=== PATIENT | female | born 1970 | race Caucasian/White ===

== ENCOUNTER → 2016-09-05 | Outpatient (CLI) | payer BC, OTHER ==
[~2016-09-05] VITALS: Ht 157.5 cm; Wt 72.6 kg
[~2016-09-05] MED LIST: LIDOCAINE 2% INJ 100 MG/5 ML SDV (FOR ANES.) As Ordered ONE; LOSA100T37 PO; MIDAZOLAM INJ 2 MG/2 ML VIAL (J2250) As Ordered ONE; NS 1,000 ML IV SCH; OMEP20CA3 PO; PROPOFOL 200 MG/20 ML VIAL As Ordered ONE; VARE1TA PO; VERA240C3 PO
--- NOTE | 2016-09-05 09:44 | ROOR ---
Patient Name: Cynthia Branch Procedure Date: 09/05/2016 9:19 AM Date of : 1970 Age: 46 Room: [facility] Gender: Female Note Status: Finalized Procedure: Colonoscopy to Cecum + Cold Snare Polypectomy + Biopsies Indications: Rectal bleeding, Change in bowel habits Providers: Brett Early MD Referring MD: LORRAINE CHANCE NP Requesting Provider: Medicines: Monitored Anesthesia Care Complications: No immediate complications. Procedure: Pre-Anesthesia Assessment: - The heart rate, respiratory rate, oxygen saturations, blood pressure, adequacy of pulmonary ventilation, and response to care were monitored throughout the procedure. The Colonoscope was introduced through the anus and advanced to the cecum, identified by appendiceal orifice and ileocecal valve. The colonoscopy was performed without difficulty. The patient tolerated the procedure well. The quality of the bowel preparation was good. Findings: The perianal and digital rectal examinations were normal. Non-bleeding internal hemorrhoids were found during retroflexion. The hemorrhoids were small and Grade I (internal hemorrhoids that do not prolapse). A small polyp was found at 30 cm proximal to the anus. The polyp was sessile. The polyp was removed with a cold snare. Resection and retrieval were complete. Biopsies for histology were taken with a cold forceps from the ascending colon, transverse colon and descending colon for evaluation of microscopic colitis. The exam was otherwise without abnormality. Impression: - Non-bleeding internal hemorrhoids. - One small polyp at 30 cm proximal to the anus, removed with a cold snare. Resected and retrieved. - The examination was otherwise normal. - Biopsies were taken with a cold forceps from the ascending colon, transverse colon and descending colon for evaluation of microscopic colitis. - The exam was otherwise normal to the cecum. Recommendation: - Patient has a contact number available for emergencies. The signs and symptoms of potential delayed complications were discussed with the patient. Return to normal activities tomorrow. Written discharge instructions were provided to the patient. - High fiber diet. - Discharge patient to home. - Continue present medications. - Await pathology results. - Repeat colonoscopy in 3 - 5 years for surveillance based on pathology results. - Return to referring physician. - The findings and recommendations were discussed with the patient's family. - Check Portal Online for Path Results.([email or web address]) Brett Early MD Brett Early MD 09/05/2016 9:44:42 AM This report has been signed electronically. Number of Addenda: 0 Note Initiated On: 09/05/2016 9:19 AM Estimated Blood Loss: Estimated blood loss: none.
[2016-09-05 10:00] VITALS: BP 171/102
== END ==
LOC: M OPP 08:47
PROVIDERS: ATTEND Internal Medicine Gastroenterology
DX: K64.0 First degree hemorrhoids (principal); D12.6 Benign neoplasm of colon, unspecified; K62.5 Hemorrhage of anus and rectum; R19.4 Change in bowel habit; I10 Essential (primary) hypertension; K21.9 Gastro-esophageal reflux disease without esophagitis; F17.200 Nicotine dependence, unspecified, uncomplicated; E78.5 Hyperlipidemia, unspecified; Z79.899 Other long term (current) drug therapy
CPT/HCPCS: 45380; 45385; 88305; 99156; J2250

== ENCOUNTER → 2017-05-02 | Outpatient (REF) | payer OTHER ==
[~2017-05-02] MED LIST changes: -LIDOCAINE 2% INJ 100 MG/5 ML SDV (FOR ANES.) As Ordered ONE; -LOSA100T37 PO; +LOSA100T5 PO; -MIDAZOLAM INJ 2 MG/2 ML VIAL (J2250) As Ordered ONE; -NS 1,000 ML IV SCH; -PROPOFOL 200 MG/20 ML VIAL As Ordered ONE
[2017-05-02 20:11] LABS: MEAN CORPUSCULAR HEMOGLOBIN 26.9 pg (27.0-33.0); MEAN CORPUSCULAR HGB CONC 32.1 g/dl (32.0-36.5); MEAN CORPUSCULAR VOLUME 83.8 fl (80.0-96.0); PLATELET COUNT, AUTOMATED 274 10^3/uL (150-450); RED CELL DISTRIBUTION WIDTH 14.1 % (11.5-14.5); WHITE BLOOD COUNT 9.2 10^3/uL (4.0-10.0)
[2017-05-02 20:13] LABS: ALBUMIN 3.5 GM/DL (3.2-5.2); ALBUMIN/GLOBULIN RATIO 1.06 (1.00-1.93); ALKALINE PHOSPHATASE 68 U/L (45-117); ALT/SGPT 24 U/L (12-78); ANION GAP 8 MEQ/L (8-16); AST/SGOT 17 U/L (7-37); BILIRUBIN,TOTAL 0.4 MG/DL (0.2-1.0); BLOOD UREA NITROGEN 13 MG/DL (7-18); CARBON DIOXIDE LEVEL 28 MEQ/L (21-32); CHLORIDE LEVEL 103 MEQ/L (98-107); CHOLESTEROL LEVEL 215 MG/DL (<200); CREATININE FOR GFR 0.82 MG/DL (0.55-1.02); GLOMERULAR FILTRATION RATE > 60.0 (>58); GLUCOSE, FASTING 103 MG/DL (70-105); POTASSIUM SERUM 4.1 MEQ/L (3.5-5.1); SODIUM LEVEL 139 MEQ/L (136-145); TOTAL PROTEIN 6.8 GM/DL (6.4-8.2); TRIGLYCERIDES LEVEL 299 MG/DL (<150)
== END ==
LOC: M SFHCCLAY 11:04
PROVIDERS: ATTEND Family Medicine
DX: I10 Essential (primary) hypertension (principal); F17.200 Nicotine dependence, unspecified, uncomplicated; E78.2 Mixed hyperlipidemia

== ENCOUNTER → 2017-10-31 | Outpatient (REF) | payer OTHER ==
[2017-10-31 11:47] LABS: ALBUMIN 3.3 GM/DL (3.2-5.2); ALBUMIN/GLOBULIN RATIO 1.03 (1.00-1.93); ALKALINE PHOSPHATASE 69 U/L (45-117); ALT/SGPT 27 U/L (12-78); ANION GAP 7 MEQ/L (8-16); AST/SGOT 12 U/L (7-37); BILIRUBIN,TOTAL 0.4 MG/DL (0.2-1.0); BLOOD UREA NITROGEN 14 MG/DL (7-18); CALCIUM LEVEL 8.6 MG/DL (8.5-10.1); CARBON DIOXIDE LEVEL 27 MEQ/L (21-32); CHLORIDE LEVEL 107 MEQ/L (98-107); CHOLESTEROL LEVEL 143 MG/DL (<200); CHOLESTEROL RISK RATIO 3.487 (<5); CREATININE FOR GFR 0.78 MG/DL (0.55-1.30); GLOMERULAR FILTRATION RATE > 60.0 (>58); GLUCOSE, FASTING 101 MG/DL (70-100); HDL CHOLESTEROL 41 MG/DL (>40); NON-HDL-C 102 MG/DL; POTASSIUM SERUM 4.1 MEQ/L (3.5-5.1); SODIUM LEVEL 141 MEQ/L (136-145); TOTAL PROTEIN 6.5 GM/DL (6.4-8.2); TRIGLYCERIDES LEVEL 275 MG/DL (<150)
== END ==
LOC: M SFHCCLAY 08:09
DX: E78.2 Mixed hyperlipidemia (principal)
CPT/HCPCS: 80053

== ENCOUNTER → 2018-07-09 | Outpatient (REF) | payer OTHER | LOC: M LAB REF 18:09 | PROVIDERS: ATTEND Specialist | DX: K13.79 Other lesions of oral mucosa (principal) ==

== ENCOUNTER → 2019-03-06 | Outpatient (CLI) | payer BC, OTHER ==
[~2019-03-06] MED LIST changes: -OMEP20CA3 PO; +OMEP20CA4 PO
[2019-03-06 16:48] LABS: FREE THYROXINE INDEX 3.7 % (1.3-4.8); THYROID STIMULATING HORMONE 3.04 uIU/ML (0.358-3.740); THYROXINE (T4) 10.5 UG/DL (4.5-12.0)
== END ==
LOC: M LAB 15:11
PROVIDERS: ATTEND Optometrist
DX: H05.249 Constant exophthalmos, unspecified eye (principal)

== ENCOUNTER → 2019-08-31 | Outpatient (REF) | payer OTHER ==
[~2019-08-31] MED LIST changes: +OMEP1CAP73 PO; -OMEP20CA4 PO
[2019-08-31 16:15] LABS: BASO % 0.3 % (0.0-1.0); EOS # 0.1 10^3/uL (0.0-0.5); EOS % 1.1 % (0.0-3.0); HEMATOCRIT 41.4 % (36.0-47.0); HEMOGLOBIN 13.5 g/dl (12.0-15.5); LYMPH # 2.6 10^3/uL (1.5-5.0); MEAN CORPUSCULAR HEMOGLOBIN 26.8 pg (27.0-33.0); MEAN CORPUSCULAR HGB CONC 32.6 g/dl (32.0-36.5); MEAN CORPUSCULAR VOLUME 82.1 fl (80.0-96.0); MONO # 0.6 10^3/uL (0.0-0.8); MONO % 5.7 % (0.0-5.0); NEUTROPHILS # 6.9 10^3/uL (1.5-8.5); NEUTROPHILS % 67.6 % (36.0-66.0); PLATELET COUNT, AUTOMATED 308 10^3/uL (150-450); RED BLOOD COUNT 5.04 10^6/uL (4.00-5.40); WHITE BLOOD COUNT 10.2 10^3/uL (4.0-10.0)
[2019-08-31 16:31] LABS: ALBUMIN 3.9 GM/DL (3.2-5.2); ALT/SGPT 28 U/L (12-78); BILIRUBIN,TOTAL 0.8 MG/DL (0.2-1.0); BLOOD UREA NITROGEN 18 MG/DL (7-18); CALCIUM LEVEL 8.8 MG/DL (8.5-10.1); CARBON DIOXIDE LEVEL 29 MEQ/L (21-32); CHLORIDE LEVEL 101 MEQ/L (98-107); CHOLESTEROL LEVEL 159 MG/DL (<200); CHOLESTEROL RISK RATIO 3.456 (<5); CREATININE FOR GFR 0.87 MG/DL (0.55-1.30); GLOMERULAR FILTRATION RATE > 60.0 (>51); GLUCOSE, FASTING 102 MG/DL (70-100); HDL CHOLESTEROL 46 MG/DL (>40); LDL CHOLESTEROL 53 MG/DL (<100); NON-HDL-C 113 MG/DL; POTASSIUM SERUM 4.3 MEQ/L (3.5-5.1); SODIUM LEVEL 135 MEQ/L (136-145); TOTAL 25(OH) VITAMIN D 27.6 NG/ML (30.0-100.0); TOTAL PROTEIN 7.3 GM/DL (6.4-8.2); TRIGLYCERIDES LEVEL 299 MG/DL (<150)
[2019-08-31 16:44] LABS: HEMOGLOBIN A1c 6.3 %
== END ==
LOC: M SFHCCLAY 11:24
PROVIDERS: ATTEND Physician Assistant
DX: E66.01 Morbid (severe) obesity due to excess calories (principal); I10 Essential (primary) hypertension

== ENCOUNTER → 2020-06-28 | Outpatient (REF) | payer OTHER ==
[2020-06-28 16:24] LABS: HEMATOCRIT 38.9 % (36.0-47.0); HEMOGLOBIN 12.1 g/dl (12.0-15.5); MEAN CORPUSCULAR HEMOGLOBIN 25.7 pg (27.0-33.0); MEAN CORPUSCULAR HGB CONC 31.1 g/dl (32.0-36.5); MEAN CORPUSCULAR VOLUME 82.6 fl (80.0-96.0); PLATELET COUNT, AUTOMATED 300 10^3/uL (150-450); RED BLOOD COUNT 4.71 10^6/uL (4.00-5.40); WHITE BLOOD COUNT 12.2 10^3/uL (4.0-10.0)
[2020-06-28 16:49] LABS: ALBUMIN 3.4 GM/DL (3.2-5.2); ALT/SGPT 20 U/L (12-78); BILIRUBIN,TOTAL 0.4 MG/DL (0.2-1.0); BLOOD UREA NITROGEN 16 MG/DL (7-18); CALCIUM LEVEL 9.2 MG/DL (8.5-10.1); CARBON DIOXIDE LEVEL 31 MEQ/L (21-32); CHLORIDE LEVEL 100 MEQ/L (98-107); CHOLESTEROL LEVEL 161 MG/DL (<200); CHOLESTEROL RISK RATIO 2.824 (<5); CREATININE FOR GFR 0.88 MG/DL (0.55-1.30); GLOMERULAR FILTRATION RATE > 60.0 (>51); GLUCOSE, FASTING 93 MG/DL (70-100); HDL CHOLESTEROL 57 MG/DL (>40); LDL CHOLESTEROL 64 MG/DL (<100); NON-HDL-C 104 MG/DL; POTASSIUM SERUM 3.8 MEQ/L (3.5-5.1); SODIUM LEVEL 138 MEQ/L (136-145); TOTAL PROTEIN 6.8 GM/DL (6.4-8.2); TRIGLYCERIDES LEVEL 202 MG/DL (<150)
[2020-06-28 16:55] LABS: TOTAL 25(OH) VITAMIN D 40.3 NG/ML (30.0-100.0)
[2020-06-28 19:35] LABS: HEMOGLOBIN A1c 5.4 %
[2020-06-29 14:12] LABS: FERRITIN 27 NG/ML (8-252); IRON (FE) 32 UG/DL (50-170); PERCENT SATURATION 9.1 % (13.2-45.0); TOTAL IRON BINDING CAPACITY 352 UG/DL (250-450)
[2020-06-30 10:47] LABS: TOTAL PROTEIN 6.8 GM/DL (6.4-8.2)
[2020-06-30 11:41] LABS: ALBUMIN 3.86 GM/DL (3.29-5.55); ALBUMIN % 56.8 % (55.8-66.1); ALPHA-1-GLOBULIN % 5.3 % (2.9-4.9); ALPHA-1-GLOBULINS 0.36 GM/DL (0.17-0.41); ALPHA-2-GLOBULINS 0.85 GM/DL (0.42-0.99); ALPHA-2-GLOBULINS % 12.5 % (7.1-11.8); BETA-1-GLOBULINS 0.49 GM/DL (0.28-0.60); BETA-1-GLOBULINS % 7.2 % (4.7-7.2); BETA-2-GLOBULINS 0.41 GM/DL (0.19-0.55); BETA-2-GLOBULINS % 6.1 % (3.2-6.5); GAMMA GLOBULIN % 12.1 % (11.1-18.8); GAMMA GLOBULINS 0.82 GM/DL (0.65-1.58)
== END ==
LOC: M SFHCCLAY 11:22
PROVIDERS: ATTEND Physician Assistant
DX: I10 Essential (primary) hypertension (principal); R73.09 Other abnormal glucose; E78.2 Mixed hyperlipidemia; E55.9 Vitamin D deficiency, unspecified

== ENCOUNTER → 2020-06-29 | Outpatient (REF) | payer OTHER | LOC: M SFHCCLAY 13:36 | PROVIDERS: ATTEND Family Medicine | DX: D89.2 Hypergammaglobulinemia, unspecified (principal); D50.9 Iron deficiency anemia, unspecified ==

== ENCOUNTER → 2021-01-03 | Outpatient (REF) | payer OTHER ==
[2021-01-03 16:00] LABS: HEMATOCRIT 40.7 % (36.0-47.0); HEMOGLOBIN 12.9 g/dl (12.0-15.5); MEAN CORPUSCULAR HEMOGLOBIN 26.4 pg (27.0-33.0); MEAN CORPUSCULAR HGB CONC 31.7 g/dl (32.0-36.5); MEAN CORPUSCULAR VOLUME 83.2 fl (80.0-96.0); PLATELET COUNT, AUTOMATED 277 10^3/uL (150-450); RED BLOOD COUNT 4.89 10^6/uL (4.00-5.40); WHITE BLOOD COUNT 9.3 10^3/uL (4.0-10.0)
[2021-01-03 16:34] LABS: ALBUMIN 3.9 GM/DL (3.2-5.2); ALT/SGPT 32 U/L (12-78); BILIRUBIN,TOTAL 0.5 MG/DL (0.2-1.0); BLOOD UREA NITROGEN 17 MG/DL (7-18); CARBON DIOXIDE LEVEL 31 MEQ/L (21-32); CHLORIDE LEVEL 103 MEQ/L (98-107); CHOLESTEROL LEVEL 171 MG/DL (<200); CHOLESTEROL RISK RATIO 3.288 (<5); CREATININE FOR GFR 0.84 MG/DL (0.55-1.30); GLOMERULAR FILTRATION RATE > 60.0 (>51); GLUCOSE, FASTING 100 MG/DL (70-100); HDL CHOLESTEROL 52 MG/DL (>40); LDL CHOLESTEROL 70 MG/DL (<100); NON-HDL-C 119 MG/DL; POTASSIUM SERUM 4.5 MEQ/L (3.5-5.1); SODIUM LEVEL 138 MEQ/L (136-145); TOTAL PROTEIN 7.1 GM/DL (6.4-8.2); TRIGLYCERIDES LEVEL 246 MG/DL (<150)
== END ==
LOC: M SFHCCLAY 09:51
PROVIDERS: ATTEND Family Medicine
DX: I10 Essential (primary) hypertension (principal); K21.9 Gastro-esophageal reflux disease without esophagitis; E78.2 Mixed hyperlipidemia

== ENCOUNTER → 2021-07-12 | Outpatient (CLI) | payer BC | LOC: M CLY 08:54 | PROVIDERS: ATTEND Family Medicine | DX: I10 Essential (primary) hypertension (principal) ==

== ENCOUNTER → 2021-07-12 | Outpatient (REF) | payer OTHER ==
[2021-07-12 12:06] LABS: HEMOGLOBIN A1c 5.6 %
[2021-07-12 12:16] LABS: BLOOD UREA NITROGEN 15 MG/DL (7-18); CALCIUM LEVEL 9.5 MG/DL (8.5-10.1); CARBON DIOXIDE LEVEL 29 MEQ/L (21-32); CHLORIDE LEVEL 99 MEQ/L (98-107); CHOLESTEROL LEVEL 145 MG/DL (<200); CHOLESTEROL RISK RATIO 2.843 (<5); CREATININE FOR GFR 0.81 MG/DL (0.55-1.30); FREE T4 0.98 NG/DL (0.76-1.46); GLOMERULAR FILTRATION RATE > 60.0 (>51); GLUCOSE, FASTING 92 MG/DL (70-100); HDL CHOLESTEROL 51 MG/DL (>40); LDL CHOLESTEROL 41 MG/DL (<100); NON-HDL-C 94 MG/DL; POTASSIUM SERUM 3.7 MEQ/L (3.5-5.1); SODIUM LEVEL 136 MEQ/L (136-145); THYROGLOBULIN ANTIBODY 25.2 U/ML (<60.0); THYROID PEROXIDASE ANTIBODY 42.2 U/ML (<60.0); TRIGLYCERIDES LEVEL 263 MG/DL (<150)
== END ==
LOC: M SFHCCLAY 08:48
PROVIDERS: ATTEND Family Medicine
DX: E66.9 Obesity, unspecified (principal); I10 Essential (primary) hypertension; Z12.31 Encounter for screening mammogram for malignant neoplasm of breast; J45.20 Mild intermittent asthma, uncomplicated; E78.2 Mixed hyperlipidemia

== ENCOUNTER → 2022-01-23 | Outpatient (CLI) | payer BC, OTHER | LOC: M CARPUL 12:52 | PROVIDERS: ATTEND Family Medicine | DX: J45.20 Mild intermittent asthma, uncomplicated (principal) ==

== ENCOUNTER → 2022-02-14 | Outpatient (CLI) | payer BC, OTHER | LOC: M RAD 16:48 | PROVIDERS: ATTEND Family Medicine | DX: Z87.891 Personal history of nicotine dependence (principal) ==

== ENCOUNTER → 2022-03-12 | Outpatient (CLI) | payer BC, OTHER | LOC: M PLARAD 12:29 | PROVIDERS: ATTEND Internal Medicine | DX: R91.1 Solitary pulmonary nodule (principal) | CPT/HCPCS: 78815; A9552 ==

== ENCOUNTER → 2022-04-03 | Outpatient (REF) | payer BC, OTHER ==
[2022-04-03 20:59] LABS: FERRITIN 18.1 NG/ML (7.3-270.7); PERCENT SATURATION 19.6 % (13.2-45.0)
== END ==
LOC: M LAB REF 16:46
PROVIDERS: ATTEND Internal Medicine
DX: K76.0 Fatty (change of) liver, not elsewhere classified (principal); D50.9 Iron deficiency anemia, unspecified

== ENCOUNTER → 2022-04-04 | Outpatient (REF) | payer BC, OTHER | LOC: M LAB REF 16:31 | PROVIDERS: ATTEND Internal Medicine | DX: E34.9 Endocrine disorder, unspecified (principal) ==

== ENCOUNTER → 2022-06-15 | Outpatient (CLI) | payer BC, OTHER | LOC: M PLAIMG 14:27 | PROVIDERS: ATTEND Internal Medicine Pulmonary Disease | DX: R91.8 Other nonspecific abnormal finding of lung field (principal) ==

== ENCOUNTER → 2022-10-18 | Outpatient (CLI) | payer BC, OTHER | LOC: M RAD 14:33 | PROVIDERS: ATTEND Internal Medicine Pulmonary Disease | DX: R91.8 Other nonspecific abnormal finding of lung field (principal) ==

== ENCOUNTER → 2022-12-25 | Outpatient (REF) | payer OTHER ==
[2022-12-25 17:35] LABS: URIC ACID 6.6 MG/DL (3.1-7.8)
[2022-12-25 17:37] LABS: IMMUNOGLOBULIN A 129.8 MG/DL (40-350)
[2022-12-25 17:38] LABS: RHEUMATOID FACTOR QUANT 11.7 IU/ML (<14)
== END ==
LOC: M LAB REF 16:37
PROVIDERS: ATTEND Internal Medicine
DX: R19.7 Diarrhea, unspecified (principal)

== ENCOUNTER → 2022-12-26 | Outpatient (REF) | payer OTHER | LOC: M LAB REF 11:38 | PROVIDERS: ATTEND Internal Medicine | DX: R19.7 Diarrhea, unspecified (principal) ==

== ENCOUNTER → 2023-01-14 | Outpatient (CLI) | payer BC, OTHER ==
[~2023-01-14] MED LIST changes: +GASTROGRAFIN SOLUTION 30ML As Ordered ONE
== END ==
LOC: M RAD 11:51
PROVIDERS: ATTEND Internal Medicine
DX: R91.1 Solitary pulmonary nodule (principal); K57.30 Diverticulosis of large intestine without perforation or abscess without bleeding; N83.291 Other ovarian cyst, right side
CPT/HCPCS: 74176; Q9963

== ENCOUNTER → 2023-01-24 | Outpatient (CLI) | payer BC, OTHER ==
[~2023-01-24] MED LIST changes: -GASTROGRAFIN SOLUTION 30ML As Ordered ONE
== END ==
LOC: M RAD 14:20
PROVIDERS: ATTEND Internal Medicine
DX: R10.31 Right lower quadrant pain (principal)

== ENCOUNTER → 2023-02-26 | Outpatient (CLI) | payer BC, OTHER | LOC: M PLAIMG 15:14 | PROVIDERS: ATTEND Internal Medicine | DX: M54.59 Other low back pain (principal) ==

== ENCOUNTER → 2023-03-26 | Outpatient (CLI) | payer BC, OTHER | LOC: M RAD 12:40 | PROVIDERS: ATTEND Internal Medicine | DX: N83.201 Unspecified ovarian cyst, right side (principal) ==

== ENCOUNTER → 2023-04-09 | Outpatient (CLI) | payer BC, OTHER | LOC: M SLEEP 20:00 | PROVIDERS: ATTEND Physician Assistant | DX: G47.33 Obstructive sleep apnea (adult) (pediatric) (principal) ==

== ENCOUNTER → 2023-07-29 | Outpatient (REF) | payer BC, OTHER ==
[2023-07-29 19:29] LABS: RHEUMATOID FACTOR QUANT 6.8 IU/ML (<14)
[2023-07-29 19:36] LABS: URIC ACID 4.8 MG/DL (3.1-7.8)
== END ==
LOC: M LAB REF 18:00
PROVIDERS: ATTEND Internal Medicine
DX: M15.9 Polyosteoarthritis, unspecified (principal)

== ENCOUNTER → 2023-08-16 | Outpatient (CLI) | payer BC | LOC: M RAD 14:38 | PROVIDERS: ATTEND Internal Medicine Pulmonary Disease | DX: Z87.891 Personal history of nicotine dependence (principal) ==

== ENCOUNTER → 2024-02-05 | Outpatient (REF) | payer BC, OTHER ==
[2024-02-05 18:57] LABS: C REACTIVE PROTEIN QUANTITATIV 0.6 MG/DL (<1.0)
[2024-02-05 18:58] LABS: PERCENT SATURATION 15.8 % (13.2-45.0)
[2024-02-05 19:02] LABS: FERRITIN 18.6 NG/ML (7.3-270.7)
== END ==
LOC: M LAB REF 16:18
PROVIDERS: ATTEND Internal Medicine
DX: K76.0 Fatty (change of) liver, not elsewhere classified (principal)

== ENCOUNTER → 2024-07-01 | Outpatient (REF) | payer OTHER | LOC: M LAB REF 12:23 | PROVIDERS: ATTEND Internal Medicine | DX: R89.9 Unspecified abnormal finding in specimens from other organs, systems and tissues (principal) ==

== ENCOUNTER → 2024-07-01 | Outpatient (CLI) | payer BC | LOC: M PLAIMG 13:57 | PROVIDERS: ATTEND Internal Medicine | DX: R89.9 Unspecified abnormal finding in specimens from other organs, systems and tissues (principal) ==

== ENCOUNTER → 2024-08-24 | Outpatient (CLI) | payer BC | LOC: M PLAIMG 13:40 | PROVIDERS: ATTEND Internal Medicine | DX: R51.9 Headache, unspecified (principal) ==

== ENCOUNTER → 2024-09-25 | Outpatient (REF) | payer BC | LOC: M LAB REF 11:44 | PROVIDERS: ATTEND Internal Medicine | DX: R19.5 Other fecal abnormalities (principal) ==

== ENCOUNTER → 2025-03-09 | Outpatient (CLI) | payer BC ==
[~2025-03-09] MED LIST changes: -VERA240C3 PO; +VERA240C5 PO
== END ==
LOC: M PLAIMG 14:32
PROVIDERS: ATTEND Orthopaedic Surgery Hand Surgery
DX: M19.90 Unspecified osteoarthritis, unspecified site (principal)

== ENCOUNTER → 2025-03-30 | Outpatient (REF) | payer BC | LOC: M LAB REF 16:59 | PROVIDERS: ATTEND Orthopaedic Surgery Hand Surgery | DX: M25.511 Pain in right shoulder (principal) ==